=== PATIENT | male | born 1950 | race Caucasian/White ===

== ENCOUNTER 2022-04-04 11:37 | Day surgery (SDC) | payer MEDICARE, MEDICAID ==
[2022-04-03 13:03] LABS: COVID AG,FIA SOURCE NASAL SWAB
[~2022-04-04] VITALS: Ht 170.2 cm; Wt 88.5 kg
[~2022-04-04 11:37] MED LIST: ALBU6.7H14 IH; AMLO10TA55 PO; ATOR40TA71 PO; BUME1TAB6 PO; CARV6.2534 PO; FLUO20CA36 PO; FLUT1AER4 PO; FOLI-130 PO; FURO20TA4 PO; LOSA100T58 PO; METF-446 PO; PROP20TA96 PO; QUET100T34 PO; TAMS-13 PO
[2022-04-04] MEDS ORDERED: PROPOFOL 1% 20 ML VIAL IVP ONE (11:38)
[2022-04-04] MEDS ORDERED: LIDOCAINE/PF 2% 5 ML SYRINGE IVP ONE (11:38)
[2022-04-04 12:51] LABS: GLUCOMETER DEV NAME(LOC) SDS.; GLUCOSE,POINT OF CARE 115 MG/DL (70-110)
[2022-04-04] MEDS ORDERED: SODIUM CHLORIDE 0.9% 1,000 ML IV ONE (13:30)
== END 2022-04-04 15:30 | disposition home or self-care (01) ==
LOC: SURGERY 11:37
PROVIDERS: ATTEND Internal Medicine Gastroenterology
DX: K63.5 Polyp of colon (principal); K57.30 Diverticulosis of large intestine without perforation or abscess without bleeding; Z20.822 Contact with and (suspected) exposure to COVID-19; Z98.890 Other specified postprocedural states; E78.00 Pure hypercholesterolemia, unspecified; Z79.899 Other long term (current) drug therapy
CPT/HCPCS: 87426; 45385; 45380; 82962; 88305; C9803; C1769; J2704; J3490